=== PATIENT | male | born 1975 | race African-American/Black ===

== ENCOUNTER → 2024-03-15 | Day surgery (SDC) | payer BC ==
[~2024-03-15] MED LIST: AMLODIPINE BESY10 MG PO; CHLORTHALIDONE50 MG PO; CIALIS20 MG; LEVOTHYROXINE50 MCG PO; LIDOCAINE HCL 2% LOCAL 20 ML VIAL ONE; METOPROLOL SUCC50 MG PO; MIDAZOLAM HCL 2 MG/2 ML VIAL ONE; MOUNJARO10 MG/0.5; NEURONTIN300 MG PO; NEURONTIN400 MG PO; PROPOFOL IV EMULSION 10 MG/ML 20 ML VIAL ONE; REPAGLINIDE0.5 MG PO; XIGDUO XR 5 MG1 EAC1 PO
[2024-03-15] MEDS: LACTATED RINGER'S 1,000 ML ONE (10:46)
[2024-03-15 12:05] VITALS: BP 137/94; PULSE 77; RESP 16; TEMP 97.4; O2SAT 98
== END | disposition home or self-care (01) ==
LOC: OR 09:29
PROVIDERS: ATTEND Internal Medicine Gastroenterology
DX: Z12.11 Encounter for screening for malignant neoplasm of colon (principal); K64.8 Other hemorrhoids; I10 Essential (primary) hypertension; E03.9 Hypothyroidism, unspecified; E11.9 Type 2 diabetes mellitus without complications; Z88.6 Allergy status to analgesic agent; Z88.0 Allergy status to penicillin; Z01.810 Encounter for preprocedural cardiovascular examination; Z79.85 Long-term (current) use of injectable non-insulin antidiabetic drugs; Z79.899 Other long term (current) drug therapy; Z68.39 Body mass index [BMI] 39.0-39.9, adult; Z86.711 Personal history of pulmonary embolism; Z86.718 Personal history of other venous thrombosis and embolism; Z80.0 Family history of malignant neoplasm of digestive organs
CPT/HCPCS: 45378; 93005; J2003; J2250; J2704; J7121